=== PATIENT | female | born 1990 | race African-American/Black ===

== ENCOUNTER 2018-01-21 14:20 | Emergency (ER) | payer SELFPAY ==
[~2018-01-21] VITALS: Ht 160 cm; Wt 90.9 kg
[2018-01-21 14:24] VITALS: BP 122/81; TEMP 98.5
[2018-01-21] MEDS ORDERED: LOTRIMIN15 GM TOP (14:58)
[2018-01-21 15:28] VITALS: PULSE 88
== END 2018-01-21 15:29 | disposition home or self-care (01) ==
LOC: COL.ER 14:20
DX: B35.9 Dermatophytosis, unspecified (principal); I45.6 Pre-excitation syndrome